=== PATIENT | female | born 2000 | race Hispanic/Latino ===

== ENCOUNTER 2021-12-26 18:58 | Emergency (ER) | payer BC ==
[~2021-12-26] VITALS: Ht 162.6 cm; Wt 81.6 kg
[2021-12-26 19:00] VITALS: BP 111/81
[2021-12-26] MEDS ORDERED: GUAIFENESIN-DM 200/20 MG 10 ML PO ONE (20:00)
[2021-12-26] MEDS ORDERED: ACETAMINOPHEN 500 MG TABLET PO ONE (20:00)
[2021-12-26] MEDS ORDERED: DIAZEPAM 5 MG/ML 2 ML SYG IVP ONE (20:30)
[2021-12-26] MEDS ORDERED: ONDANSETRON 4MG INJ IVP ONE (20:30)
[2021-12-26] MEDS ORDERED: 0.9%NACL 1000ML 1,000 ML IV ONE (20:30)
[2021-12-26] MEDS ORDERED: IBUP-2070 PO (21:15)
[2021-12-26] MEDS ORDERED: ONDA4TAB10 PO (21:15)
[2021-12-26] MEDS ORDERED: AZIT500T2 PO (21:15)
[2021-12-26] MEDS ORDERED: GUAIF10 PO (21:15)
== END 2021-12-26 21:20 | disposition home or self-care (01) ==
LOC: EDH 18:58
DX: U07.1 COVID-19 (principal)
CPT/HCPCS: 99284; 96374; 71045; 87635; 96375; 87880; 87804 ×2; C9803; J7030; J3360; J2405